=== PATIENT | male | born 1965 | race Caucasian/White ===

== ENCOUNTER → 2021-02-21 | Outpatient (CLI) | payer OTHER ==
[2021-02-21 13:05] LABS: HEMOGLOBIN 17.4 gm/dl (14.0-17.5); RED BLOOD COUNT 5.91 M/UL (4.20-5.50); WHITE BLOOD COUNT 8.3 K/UL (4.5-11.0)
[2021-02-21 13:32] LABS: BUN/CREATININE RATIO 10 (0-10)
[2021-02-22 07:10] LABS: VITAMIN D, 25-HYDROXY 35.8 ng/mL (30.0-100.0)
[2021-02-22 08:14] LABS: FSH, SERUM 3.6 mIU/mL (1.5-12.4); PROLACTIN 12.7 ng/mL (4.0-15.2); SEX HORM BINDING GLOB, SERUM 51.2 nmol/L (19.3-76.4)
[2021-02-24 07:10] LABS: TESTOSTERONE, SERUM 634 ng/dL (264-916)
[2021-03-01 18:11] LABS: ESTROGENS, TOTAL 109 pg/mL (40-115)
== END ==
LOC: LAB 12:21
PROVIDERS: Family Medicine
DX: E78.5 Hyperlipidemia, unspecified (principal); R53.83 Other fatigue; E29.1 Testicular hypofunction; E55.9 Vitamin D deficiency, unspecified
CPT/HCPCS: 36415; 80053; 80061; 82672; 83001; 83002; 84146; 84270; 84402; 84403; 84439; 84443; 84481; 85027